=== PATIENT | male | born 1995 | race Caucasian/White ===

== ENCOUNTER 2021-05-02 17:18 | Emergency (ER) | payer OTHER ==
[~2021-05-02] VITALS: Ht 160 cm; Wt 92.1 kg
[~2021-05-02 17:18] MED LIST: CEPHALEXIN500 M1 PO
== END 2021-05-02 21:00 | disposition home or self-care (01) ==
LOC: ED 17:18
DX: S06.0X0A Concussion without loss of consciousness, initial encounter (principal); S00.03XA Contusion of scalp, initial encounter; Z79.2 Long term (current) use of antibiotics; W19.XXXA Unspecified fall, initial encounter; Y93.89 Activity, other specified; Y92.89 Other specified places as the place of occurrence of the external cause; Y99.8 Other external cause status

== ENCOUNTER 2022-08-02 06:21 | Emergency (ER) | payer OTHER ==
[~2022-08-02] VITALS: Ht 162.5 cm; Wt 95.7 kg
[2022-08-02 07:22] LABS: BASO # 0.1 10*3/uL (0.0-0.1); BASO % 0.9 % (0.0-1.0); EOS # 0.5 10*3/uL (0.0-0.4); EOS % 5.5 % (1.0-4.0); HEMATOCRIT 43.7 % (42.0-52.0); LYMPH # 3.2 10*3/uL (1.3-4.4); LYMPH % 35.9 % (27.0-41.0); MEAN CORPUSCULAR HGB CONC 34.1 g/dl (33.0-37.0); MEAN PLATELET VOLUME 9.2 fl (9.6-12.3); MONO # 0.7 10*3/uL (0.1-1.0); MONO % 7.6 % (3.0-9.0); NEUT # 4.5 10*3/uL (2.3-7.9); NEUT % 49.5 % (47.0-73.0); PLATELET COUNT AUTOMATED 298 10*3/uL (130-400); RED CELL DISTRI WIDTH 11.6 % (0-14.5)
[2022-08-02 07:47] LABS: ALKALINE PHOSPHATASE 65 U/L (46-116); BUN 12 mg/dl (9-23); CHLORIDE 103 mmol/L (98-107); POTASSIUM 3.8 mmol/L (3.4-5.1); SGPT/ALT 66 U/L (10-49)
[2022-08-02] MEDS ORDERED: PREDNISONE50 MG PO (08:59)
== END 2022-08-02 09:20 | disposition home or self-care (01) ==
LOC: ED 06:21
PROVIDERS: Internal Medicine
DX: B34.9 Viral infection, unspecified (principal); U07.1 COVID-19; F10.90 Alcohol use, unspecified, uncomplicated

== ENCOUNTER 2025-07-03 17:42 | Emergency (ER) | payer SELFPAY ==
[~2025-07-03] VITALS: Ht 162.5 cm; Wt 104.3 kg
[~2025-07-03 17:42] MED LIST changes: +ALLOPURINOL300 MG PO; +MONTELUKAST SOD10 MG PO; +PREDNISONE50 MG PO
[2025-07-03] MEDS ORDERED: Acetaminophen/Oxycodone 5 MG/325 MG TABLET PO ONE (19:20)
[2025-07-03] MEDS ORDERED: PERCOCET 5-3251 EACH PO (19:23)
[2025-07-03] MEDS ORDERED: PREDNISONE10 M1 PO (19:25)
== END 2025-07-03 19:40 | disposition home or self-care (01) ==
LOC: ED 17:42
DX: M10.071 Idiopathic gout, right ankle and foot (principal)